=== PATIENT | male | born 1935 | race Caucasian/White ===

== ENCOUNTER 2018-09-22 10:37 | Day surgery (SDC) | payer BC, MEDICARE, OTHER ==
[~2018-09-22 10:37] MED LIST: LIDOCAINE HCL 1% MPF 30 SOL ONE; PROPOFOL 500 MG/50 ML EMU IV ONE
[2018-09-22 12:10] VITALS: BP 122/77; PULSE 64; RESP 16; TEMP 97.6; O2SAT 95
== END 2018-09-22 12:45 | disposition home or self-care (01) | DRG 392 ==
LOC: SURG 10:37
PROVIDERS: ATTEND Surgery
DX: K59.00 Constipation, unspecified (principal)
CPT/HCPCS: J2001; J2704